=== PATIENT | male | born 1980 | race Caucasian/White ===

== ENCOUNTER 2017-03-06 19:01 | Emergency (ER) | payer OTHER ==
--- NOTE | 2017-03-06 20:57 | ED CLINICAL REPORT ---
Clinical Report - Physicians/Mid Levels [facility] [address] [place] [address] 03/06/2017 19:03 Patient: NANCY SHAH Time Seen: 1909; initial patient contact, initial documentation, patient care assumed. Arrived- By private vehicle. Historian- patient. HISTORY OF PRESENT ILLNESS Chief Complaint: Injury to left forearm. The injury happened just prior to arrival. The patient sustained a moderate direct blow[place] ( branch broke off tree and hit arm). Patient is experiencing mild pain. Patient denies injury to the head or neck. No other injury. REVIEW OF SYSTEMS No swelling, tingling, weakness or skin laceration. All systems otherwise negative, except as recorded above. PAST HISTORY See nurses notes. PROBLEMS: no known problems. ADDITIONAL SURGERIES: Testicle manually descended. --19:11 Fabricio Mandujano R.N. The patient's dominant hand is the right. Tetanus immunization status is unknown. SOCIAL HISTORY Never smoker. Occasional alcohol use. No drug use. No recent travel. Is a local resident. FAMILY HISTORY No significant family medical history. ADDITIONAL NOTES The nursing notes have been reviewed with agreement regarding the chief complaint, HPI, ROS, PMH and patient medications and allergies. PHYSICAL EXAM Vital Signs: 03/06/2017 19:09 BP: 157/70. HR: 108. RR: 16. O2 saturation: 96%. Temp: 99.4 F. Pain level now: 3/10. Have been reviewed as abnormal and appear to be correct. Blood pressure normal. Tachycardic. Respiratory rate normal. Temperature normal. Oxygen saturation normal. Appearance: Alert. Oriented X3. No acute distress. Head: Head atraumatic. Eyes: Pupils equal, round and reactive to light. Eyes normal inspection. Respiratory: No respiratory distress. Skin: Skin intact. Skin warm and dry. Normal skin color. Normal skin turgor. Extremities: Left forearm: mild tenderness and swelling, superficial 0.5 cm laceration and small ecchymosis located in the mid ulnar aspect of forearm. Neurovascular intact distally. (hematoma present with superficial lac,no active bleeding,no closure needed). No erythema, abrasion, puncture wound, foreign body or deformity. Upper extremity otherwise negative. Extremities otherwise negative. Neuro, Vascular and Tendons: Vascular status intact. Sensation intact. Motor intact. Tendon function intact. Neuro: Oriented X 3. No motor deficit. No sensory deficit. Note: isolated injury to fa. LABS, X-RAYS, AND EKG X-Rays: X-rays are normal and reveal no acute disease (and dr rayo). Left forearm negative. The X-rays were independently viewed by me. PROGRESS AND PROCEDURES Patient counseled in person regarding the patient's stable condition, test results and diagnosis. 20:57. Differential Diagnosis: Other possible considerations: fa fx, hematoma, lac, abrasion. Above considerations are based on history, physical exam, reassessment and X-Ray data. Differential diagnosis was discussed with patient. Disposition: Discharged home in good and improved condition (20:57). Condition: good and stable. CLINICAL IMPRESSION Single contusion with soft tissue hematoma and abrasion to the left forearm. INSTRUCTIONS Protect wound and keep wound area clean. Soak in warm soapy water. Apply bacitracin twice daily. Warnings: GENERAL WARNINGS: Return or contact your physician immediately if your condition worsens or changes unexpectedly, if not improving as expected, or if other problems arise. Specifically return if problem worsens. Follow-up: Follow up with your doctor in about one week as needed. Call for an appointment. Summary of care provided to patient. Understanding of the discharge instructions verbalized by patient. (Electronically signed by Codi Gurrola A.R.N.P. 03/06/2017 21:27)
--- NOTE | 2017-03-06 20:57 | ED ORDER SUMMARY ---
..... 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 (21:03/06/2017)] [Electronically signed by Codi GurrolaRJonathanN.PJonathan (21:27 03/06/2017)] [Electronically locked/signed by Fabricio Mandujano R.N. (21:10 03/06/2017)]
--- NOTE | 2017-03-06 20:57 | ED NURSING NOTES ---
Clinical Report - Nurses [facility] [address] [place] [address] 03/06/2017 19:03 Patient: NANCY SHAH TRIAGE Triage time 19:Mar 06 2017. Acuity: LEVEL 4. Chief Complaint: LEFT UPPER EXTREMITY PAIN and SWELLING. Location of symptoms- left forearm (small laceration). SEPSIS SCREEN: Sepsis Screen. Negative (no infection suspected/documented). --19:13 Fabricio Mandujano R.N. 19:09 03/06/17. BP: 157/70. HR: 108. RR: 16. O2 saturation: 96% on room air. Temp: 99.4 F. Pain level now: 01/16. --19:13 Fabricio Mandujano R.N. Weight: 94.3 kg stated. Height/Length: 68 inches Per Patient. BMI: 31.6. --19:09 Fabricio Mandujano R.N. Medications Fish Oil. --19:10 Fabricio Mandujano R.N. Vitamin D. --19:10 Fabricio Mandujano R.N. Multivitamin. --19:10 Fabricio Mandujano R.N. Magnesium. --19:10 Fabricio Mandujano R.N. Allergies Dogs. --19:10 Fabricio Mandujano R.N. Cats. --19:10 Fabricio Mandujano R.N. History Arrived by private vehicle. Historian: patient. This occurred just prior to arrival and today. He has had swelling and redness. No numbness or weakness. PAST MEDICAL HX: Immunizations: status is unknown. Tetanus immunization status is not up-to-date. --19:13 Fabricio Mandujano R.N. SOCIAL HX: Never smoker. Alcohol use; consumes beer occasionally. No drug use. No infectious disease exposure. SELF HARM ASSESSMENT: A self harm assessment was performed. The patient answered "no" to the question "Have you recently felt down, depressed, or hopeless?". FALL RISK ASSESSMENT: Fall risk assessment completed. No fall risk identified. NUTRITIONAL RISK ASSESSMENT: The nutritional risk assessment revealed no deficiencies. FUNCTIONAL ASSESSMENT: Functional assessment: no impairments noted. LEARNING NEEDS ASSESSMENT: The learning needs assessment revealed no barriers. SKIN INTEGRITY ASSESSMENT: Skin integrity risk assessment completed. No skin integrity risk identified. --19:25 Fabricio Mandujano R.N. PROBLEMS: no known problems. ADDITIONAL SURGERIES: Testicle manually descended. --19:11 Fabricio Mandujano R.N. Interventions ID band on patient. To room. --19:13 Fabricio Mandujano R.N. PHYSICAL ASSESSMENT Ambulatory to room. GENERAL / NEURO / PSYCH: Oriented X 4. Alert. Appears in no acute distress. EXTREMITIES: Left forearm: tenderness, swelling, erythema, ecchymosis, small abrasion and superficial laceration with controlled bleeding of the mid ulnar aspect of forearm. SKIN: Skin is warm and dry. --19:13 Fabricio Mandujano R.N. NURSING PROGRESS NOTES The plan of care for this patient has been created. Extremity elevated. Reassurance given. Two patient identifiers checked. Call light placed in reach. Side rails up. Patient ready for evaluation- DIRECTOR RETIREMENT notified. --19:14 Fabircio Mandujano R.N. ( DIRECTOR RETIREMENT in to see Pt, Pt calm, resting comfortably, ice pack provided to Pt. No other needs voiced.). --19:14 Fabricio Mandujano R.N. 19:21 03/06/2017 TDAP IM 0.5 mL given. (Lot#: [id number], expiration date: 08/16/2018, [employer]: sanofi pasteur). Given in the right deltoid. Allergies verified and confirmed 5 rights. Vaccine information statement provided to the patient. --19:23 Fabricio Mandujano R.N. ( Pt refused TDaP information sheet, verbalized understanding of need for injection, XR at bedside.). --19:25 Fabricio Mandujano R.N. Wound cleansed with sterile saline. Applied clean dressing consisting of Band-Aid, following the application of antibiotic ointment (bacitracin). ( Pt given water, informed Pt we are awaiting dictation from XR. Pt denies further needs, states he is comfortable at this time.). --20:11 Fabricio Mandujano R.N. DISPOSITION / DISCHARGE Departure time: 21:00 Mar 06 2017. Condition at departure: unchanged and stable. The goals identified in the patient's plan of care were met. No learning barriers present. Discharge instructions provided and reviewed with the patient. Treatments reviewed (Ice, positioning, elevation.). Patient verbalized understanding. Written instructions provided in Maltese. The patient was discharged by the nurse practitioner. He was discharged home. He left the Emergency Department ambulatory and via private vehicle. Patient driving. ( Pt left prior to obtaining VS. DC'd in stable condition, afebrile, ambulatory.). --21:08 Fabricio Mandujano R.N. 21:08 03/06/17. RR: 16. O2 saturation: 96% on room air. Pain level now: 01/16. --21:09 Fabricio Mandujano R.N. Locked/Released at 03/06/2017 21:10 by Fabricio Mandujano R.N.
--- NOTE | 2017-03-06 20:57 | ED NURSING NOTES ---
Clinical Report - Nurses [place] [address] [place] [place] [address] 03/06/2017 19:03 Patient: NANCY SHAH TRIAGE Triage time 19:Mar 06 2017. Acuity: LEVEL 4. Chief Complaint: LEFT UPPER EXTREMITY PAIN and SWELLING. Location of symptoms- left forearm (small laceration). SEPSIS SCREEN: Sepsis Screen. Negative (no infection suspected/documented). --19:13 Fabricio Mandujano R.N. 19:09 03/06/17. BP: 157/70. HR: 108. RR: 16. O2 saturation: 96% on room air. Temp: 99.4 F. Pain level now: 01/16. --19:13 Fabricio Mandujano R.N. Weight: 94.3 kg stated. Height/Length: 68 inches Per Patient. BMI: 31.6. --19:09 Fabricio Mandujano R.N. Medications Fish Oil. --19:10 Fabricio Mandujano R.N. Vitamin D. --19:10 Fabricio Mandujano R.N. Multivitamin. --19:10 Fabricio Mandujano R.N. Magnesium. --19:10 Fabricio Mandujano R.N. Allergies Dogs. --19:10 Fabricio Mandujano R.N. Cats. --19:10 Fabricio Mandujano R.N. History Arrived by private vehicle. Historian: patient. This occurred just prior to arrival and today. He has had swelling and redness. No numbness or weakness. PAST MEDICAL HX: Immunizations: status is unknown. Tetanus immunization status is not up-to-date. --19:13 Fabricio Mandujano R.N. SOCIAL HX: Never smoker. Alcohol use; consumes beer occasionally. No drug use. No infectious disease exposure. SELF HARM ASSESSMENT: A self harm assessment was performed. The patient answered "no" to the question "Have you recently felt down, depressed, or hopeless?". FALL RISK ASSESSMENT: Fall risk assessment completed. No fall risk identified. NUTRITIONAL RISK ASSESSMENT: The nutritional risk assessment revealed no deficiencies. FUNCTIONAL ASSESSMENT: Functional assessment: no impairments noted. LEARNING NEEDS ASSESSMENT: The learning needs assessment revealed no barriers. SKIN INTEGRITY ASSESSMENT: Skin integrity risk assessment completed. No skin integrity risk identified. --19:25 Fabricio Mandujano R.N. PROBLEMS: no known problems. ADDITIONAL SURGERIES: Testicle manually descended. --19:11 Fabricio Mandujano R.N. Interventions ID band on patient. To room. --19:13 Fabricio Mandujano R.N. PHYSICAL ASSESSMENT Ambulatory to room. GENERAL / NEURO / PSYCH: Oriented X 4. Alert. Appears in no acute distress. EXTREMITIES: Left forearm: tenderness, swelling, erythema, ecchymosis, small abrasion and superficial laceration with controlled bleeding of the mid ulnar aspect of forearm. SKIN: Skin is warm and dry. --19:13 Fabricio Mandujano R.N. NURSING PROGRESS NOTES The plan of care for this patient has been created. Extremity elevated. Reassurance given. Two patient identifiers checked. Call light placed in reach. Side rails up. Patient ready for evaluation- SUMO WRESTLER notified. --19:14 Fabricoi Mandujano R.N. ( SUMO WRESTLER in to see Pt, Pt calm, resting comfortably, ice pack provided to Pt. No other needs voiced.). --19:14 Fabricio Mandujano R.N. 19:21 03/06/2017 TDAP IM 0.5 mL given. (Lot#: [id number], expiration date: 08/16/2018, Professor Of Radiology: sanofi pasteur). Given in the right deltoid. Allergies verified and confirmed 5 rights. Vaccine information statement provided to the patient. --19:23 Fabricio Mandujano R.N. ( Pt refused TDaP information sheet, verbalized understanding of need for injection, XR at bedside.). --19:25 Fabricio Mandujano R.N. Wound cleansed with sterile saline. Applied clean dressing consisting of Band-Aid, following the application of antibiotic ointment (bacitracin). ( Pt given water, informed Pt we are awaiting dictation from XR. Pt denies further needs, states he is comfortable at this time.). --20:11 Fabricio Mandujano R.N. DISPOSITION / DISCHARGE Departure time: 21:00 Mar 06 2017. Condition at departure: unchanged and stable. The goals identified in the patient's plan of care were met. No learning barriers present. Discharge instructions provided and reviewed with the patient. Treatments reviewed (Ice, positioning, elevation.). Patient verbalized understanding. Written instructions provided in Sami. The patient was discharged by the nurse practitioner. He was discharged home. He left the Emergency Department ambulatory and via private vehicle. Patient driving. ( Pt left prior to obtaining VS. DC'd in stable condition, afebrile, ambulatory.). --21:08 Fabricio Mandujano R.N. 21:08 03/06/17. RR: 16. O2 saturation: 96% on room air. Pain level now: 01/16. --21:09 Fabricio Mandujano R.N. Locked/Released at 03/06/2017 21:10 by Fabricio Mandujano R.N.
--- NOTE | 2017-03-06 20:57 | ED ORDER SUMMARY ---
..... 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 (21:03/06/2017)] [Electronically signed by Codi GurrolaRJonathanN.PJonathan (21:27 03/06/2017)] [Electronically locked/signed by Fabricio Mandujano R.N. (21:10 03/06/2017)]
--- NOTE | 2017-03-06 21:08 | DIAGNOSTIC IMAGING REPORT ---
PROCEDURE: XR FOREARM - LEFT INDICATION: TRAUMA/INJURY TECHNIQUE: AP and lateral views. COMPARISON: None. FINDINGS: Soft tissue swelling on the dorsal aspect of the forearm but there is no fracture or dislocation. No radiopaque foreign bodies . IMPRESSION: 1. Soft tissue swelling.
--- NOTE | 2017-03-06 21:27 | ED DISCHARGE INSTRUCTIONS ---
Patient: NANCY SHAH General Instructions [facility] VisitID: [id number] [place] [address] 36y, M Registration Date/Time: 03/06/2017 Single contusion with soft tissue hematoma and abrasion to the left forearm. INSTRUCTIONS Protect wound and keep wound area clean. Soak in warm soapy water. Apply bacitracin twice daily. Warnings: GENERAL WARNINGS: Return or contact your physician immediately if your condition worsens or changes unexpectedly, if not improving as expected, or if other problems arise. Specifically return if problem worsens. Follow-up: Follow up with your doctor in about one week as needed. Call for an appointment. Summary of care provided to patient. Understanding of the discharge instructions verbalized by patient. ADDITIONAL INFORMATION Contusion,Soft Tissue You have a CONTUSION, which is a bruise with swelling and some bleeding under the skin. There are no broken bones. This injury takes a few days to a few weeks to heal. Home Care: 1) Keep the injured part elevated to reduce pain and swelling. This is especially important during the first 48 hours. 2) Make an ice pack (ice cubes in a plastic bag, wrapped in a towel) and apply for 20 minutes every 1-2 hours the first day. Continue this 3-4 times a day until the pain and swelling goes away. 3) You may use acetaminophen (Tylenol) or ibuprofen (Motrin, Advil) to control pain, unless another pain medicine was prescribed. [ NOTE : If you have chronic liver or kidney disease or ever had a stomach ulcer or GI bleeding, talk with your doctor before using these medicines.] Follow Up with your doctor or this facility if you are not improving within the next THREE days. [NOTE: If X-rays were taken, they will be reviewed by a radiologist. You will be notified of any new findings that may affect your care.] Get Prompt Medical Attention if any of the following occur: -- Pain or swelling increases -- Injured arm or leg becomes cold, blue, numb or tingly -- Redness, warmth or drainage from the skin Contusion:Upper Extremity You have a contusion of your upper extremity (arm, wrist, hand or fingers). This causes local pain, swelling and sometimes bruising. There are no broken bones. This injury takes a few days to a few weeks to heal. A sling may be provided for comfort and arm support. Home Care: 1) Keep your arm elevated to reduce pain and swelling. This is very important during the first 48 hours. 2) Apply an ice pack (ice cubes in a plastic bag, wrapped in a towel) over the injured area for 20 minutes every 1-2 hours the first day for pain relief. Continue this 3-4 times a day until the pain and swelling goes away. 3) You may use acetaminophen (Tylenol) or ibuprofen (Motrin, Advil) to control pain, unless another pain medicine was prescribed. [ NOTE : If you have chronic liver or kidney disease or ever had a stomach ulcer or GI bleeding, talk with your doctor before using these medicines.] 4) If a sling was provided, you may remove it to shower or bathe. Do not wear it for more than one week or it may cause joint stiffness. Follow Up with your doctor or this facility if you are not starting to improve within the next THREE days. [NOTE: If X-rays were taken, they will be reviewed by a radiologist. You will be notified of any new findings that may affect your care.] Get Prompt Medical Attention if any of the following occur: -- Pain or swelling increases -- Redness, warmth or drainage -- Hand or fingers becomes cold, blue, numb or tingly You have been given the following additional information: Contusion, Soft Tissue Contusion, Upper Extremity (Electronically signed by Codi Gurrola A.R.N.P. 03/06/2017 21:27)
--- NOTE | 2017-03-06 21:27 | ED MAR SUMMARY ---
..... Medication Administration Record [facility] [address] [place] [address] Patient: NANCY SHAH Visit ID: [id number] 36y, M Weight: 94.3 kg Height/Length: 68 in BMI: 31.6 ALLERGIES: Cats, Dogs Given 19:21 03/06/2017 Fabricio Mandujano R.N. Medication Administered: TDAP [IM], Dose: 0.5 mL IM. Medication Ordered: Tdap IM 0.5 mL (NOW, per protocol).
--- NOTE | 2017-03-06 21:27 | ED MED RECONCILIATION SUMMARY ---
Patient: NANCY SHAH Medication Reconciliation Report [facility] VisitID: [id number] [address] [place] [address] 36y, M Registration Date/Time: 03/06/2017 Weight: 94.3 kg Height/Length: 68 in. BMI: 31.6 ALLERGIES: Cats, Dogs The patient's Home Medications are listed below: THE FOLLOWING MEDICATIONS NEED TO BE RECONCILED: Fish Oil Magnesium Multivitamin Vitamin D The source(s) of the original Home Medication information: Not obtained. The following Medications were given to the patient in the Emergency Department: TDAP [IM] IM 0.5 mL, administered: 03/06/2017 7:21:00 PM The following Medications were prescribed to the patient: None.
--- NOTE | 2017-03-06 21:27 | ED MAR SUMMARY ---
..... Medication Administration Record [facility] [address] [place] [address] Patient: NANCY SHAH Visit ID: [id number] 36y, M Weight: 94.3 kg Height/Length: 68 in BMI: 31.6 ALLERGIES: Cats, Dogs Given 19:21 03/06/2017 Fabricio Mandujano R.N. Medication Administered: TDAP [IM], Dose: 0.5 mL IM. Medication Ordered: Tdap IM 0.5 mL (NOW, per protocol).
--- NOTE | 2017-03-06 21:27 | ED MED RECONCILIATION SUMMARY ---
Patient: NANCY SHAH Medication Reconciliation Report [facility] VisitID: [id number] [address] [place] [address] 36y, M Registration Date/Time: 03/06/2017 Weight: 94.3 kg Height/Length: 68 in. BMI: 31.6 ALLERGIES: Cats, Dogs The patient's Home Medications are listed below: THE FOLLOWING MEDICATIONS NEED TO BE RECONCILED: Fish Oil Magnesium Multivitamin Vitamin D The source(s) of the original Home Medication information: Not obtained. The following Medications were given to the patient in the Emergency Department: TDAP [IM] IM 0.5 mL, administered: 03/06/2017 7:21:00 PM The following Medications were prescribed to the patient: None.
== END 2017-03-06 21:00 | disposition home or self-care (01) ==
LOC: ED SRH 19:01
DX: S50.12XA Contusion of left forearm, initial encounter (principal); W20.8XXA Other cause of strike by thrown, projected or falling object, initial encounter; Y92.828 Other wilderness area as the place of occurrence of the external cause; Y99.8 Other external cause status; Z23 Encounter for immunization; Z91.09 Other allergy status, other than to drugs and biological substances